=== PATIENT | male | born 1955 | race Caucasian/White ===

== ENCOUNTER 2019-12-12 07:33 | Emergency (ER) | payer MEDICARE, BC ==
--- NOTE | 2019-12-12 08:03 | EDM.PDOC ---
ED HPI GENERAL MEDICAL PROBLEM - General Chief Complaint: Cardiovascular Problem Stated Complaint: HEART PRESSURE Time Seen by Provider: 12/12/19 07:45 Source of Information: Reports: Patient, Family History Limitations: Reports: No Limitations - History of Present Illness INITIAL COMMENTS - FREE TEXT/NARRATIVE: 64-year-old male who is been having shortness of breath and chest pressure with activity for several months. He is undergoing a work-up and has had an echocardiogram, labs, a stress echo, and yesterday he was getting a CT angiogram but the CT broke. His d-dimer was negative, BNP was normal, echocardiogram showed mild hypertrophy but no significant valvular disease or pericardial effusion. The stress echo however did show an area of decreased contractility at the apex and very little activity tolerance with dyspnea leading to the CT angiogram which was aborted due to equipment failure. He is becoming more and more anxious about his symptoms. This morning he got up and felt short of breath and having pressure radiating into his arms so he was brought into the emergency room. An EKG on arrival showed no ST elevation or depression. He was hypertensive. Onset: Unknown/Unsure (Symptoms have been waxing and waning for months) Duration: Waxing/Waning Worsens with: Reports: Other (Worse with activity, he also gets abdominal bloating and pressure after eating) Associated Symptoms: Reports: Chest Pain (Mostly pressure), Shortness of Breath (Especially with activity). Denies: Confusion, Cough, Fever/Chills, Nausea/ Vomiting Mid-Sternal Chest Pain Score (Numeric/FACES): 3 - Related Data Allergies Allergy/AdvReac Type Severity Reaction Status Date / Time penicillin V Allergy Other Verified 12/12/19 08:03 Home Meds: Home Meds amLODIPine Besylate [Norvasc] 5 mg PO DAILY 06/08/15 [History] Finasteride 5 mg PO DAILY 01/06/16 [History] Melatonin 5 mg PO BEDTIME 01/06/16 [History] diphenhydrAMINE [Benadryl] 50 mg PO BEDTIME 10/25/16 [History] [place]-3 Fatty Acids [Darien-3] 500 mg PO DAILY 09/24/18 [History] Calcium Carb/D3/Mag AA Chelate [Coral Calcium Capsule] 1 cap PO BID 03/20/19 [ History] Aspirin [Halfprin] 81 mg PO DAILY 03/27/19 [History] carvediloL [Coreg] 3.125 mg PO BID 12/09/19 [History] Past Medical History HEENT History: Reports: Impaired Vision Cardiovascular History: Reports: Hypertension, [place] Respiratory History: Reports: Sleep Apnea Other Respiratory History: cpap Gastrointestinal History: Reports: None Genitourinary History: Reports: Renal Calculus Musculoskeletal History: Reports: Osteoarthritis, Other (See Below) Other Musculoskeletal History: bilateral knee pain Neurological History: Reports: Migraines Psychiatric History: Reports: None Endocrine/Metabolic History: Reports: None Hematologic History: Reports: None Immunologic History: Reports: None Oncologic (Cancer) History: Reports: Prostate, Other (See Below) Other Oncologic History: skin Dermatologic History: Reports: None - Infectious Disease History Infectious Disease History: Reports: Chicken Pox, Mumps - Past Surgical History Cardiovascular Surgical History: Reports: None Respiratory Surgical History: Reports: None GI Surgical History: Reports: Appendectomy, Colonoscopy Male Surgical History: Reports: Prostate Biopsy, Ureteral Stent Neurological Surgical History: Reports: None Musculoskeletal Surgical History: Reports: Arthroscopic Knee Oncologic Surgical History: Reports: None Dermatological Surgical History: Reports: None Social & Family History - Tobacco Use Smoking Status *Q: Never Smoker - Caffeine Use Caffeine Use: Reports: Coffee, Tea - Alcohol Use Days Per Week of Alcohol Use: 7 Number of Drinks Per Day: 1 Total Drinks Per Week: 7 - Recreational Drug Use Recreational Drug Use: No - Living Situation & Occupation Living situation: Reports: Occupation: Employed ED ROS GENERAL - Review of Systems Review Of Systems: See Below Constitutional: Reports: Malaise. Denies: Fever, Chills Respiratory: Reports: Shortness of Breath Cardiovascular: Reports: Chest Pain, Blood Pressure Problem, Dyspnea on Exertion. Denies: Palpitations GI/Abdominal: Reports: Distension (Bloated or distention feeling after eating) : Reports: No Symptoms Neurological: Denies: Headache Psychiatric: Reports: Anxiety ED EXAM, GENERAL - Physical Exam Exam: See Below Exam Limited By: No Limitations General Appearance: Alert, Anxious Eye Exam: Bilateral Eye: EOMI Head: Atraumatic Respiratory/Chest: No Respiratory Distress, Lungs Clear Cardiovascular: Regular Rate, Rhythm, No Murmur. No: Bradycardia, Tachycardia GI/Abdominal: Soft, Other (Some discomfort with palpation across the upper abdomen but no focal guarding or rebound) Extremities: Normal Inspection. No: Pedal Edema Neurological: Alert, Oriented Psychiatric: Anxious Skin Exam: Warm, Dry, Erythema (Facial erythema) Course - Vital Signs Last Recorded V/S: Last Vital Signs Temp 97 F 12/12/19 07:41 Pulse 76 12/12/19 08:22 Resp 13 12/12/19 08:22 BP 149/99 H 12/12/19 08:22 Pulse Ox 94 L 12/12/19 08:22 - Orders/Labs/Meds Orders: Active Orders 24 hr Category Date Time Status EKG Documentation Completion [RC] ASDIRECTED Care 12/12/19 07:56 Active EKG 12 Lead [EK] Routine Ther 12/12/19 07:56 Ordered Labs: Laboratory Tests 12/12/19 Range/Units 08:04 Troponin I < 0.017 (0.000-0.056) ng/mL - Re-Assessments/Exams Free Text/Narrative Re-Assessment/Exam: 12/12/19 08:02 Recent records were reviewed. A 2 view chest x-ray was ordered as he has not had one, initial EKG was ordered and reviewed. A troponin will be drawn. 12/12/19 08:46 EKG was nonspecific, chest x-ray showed what appeared to be a mild diffuse pneumonitis pattern. A CT chest without contrast was ordered. 12/12/19 09:[address] appeared normal, troponin was 0. Patient's blood pressure normalized while in the emergency room without treatment. I think reassurance is all I can offer today and he can finish his CT angiogram or cardiology consultation as soon as possible. Departure - Departure Time of Disposition: 10:09 Disposition: Home, Self-Care 01 Clinical Impression: Shortness of breath on exertion, Atypical chest pain Instructions: Shortness of Breath, Adult, [id number] Referrals: Taty Graff MD [Primary Care Provider] - Forms: ED Department Discharge Care Plan Goals: Continue current medications, activity as tolerated, and follow-up with cardiology as planned. Return anytime if worsening or concerns. Sepsis Event Note - Evaluation Sepsis Screening Result: No Definite Risk - Focused Exam Vital Signs: Vital Signs Temp Pulse Resp BP Pulse Ox 12/12/19 08:22 76 13 149/99 H 94 L 12/12/19 07:41 97 F 96 14 176/126 H 96 Date Exam was Performed: 12/12/19 Time Exam was Performed: 10:29 - My Orders Last 24 Hours: My Active Orders 12/12/19 07:56 EKG Documentation Completion [RC] ASDIRECTED EKG 12 Lead [EK] Routine - Assessment/Plan Last 24 Hours: My Active Orders 12/12/19 07:56 EKG Documentation Completion [RC] ASDIRECTED EKG 12 Lead [EK] Routine
[2019-12-12 08:36] VITALS: BP 149/99; PULSE 76
--- NOTE | 2019-12-12 09:01 | CR ---
CHEST: 2 view CLINICAL HISTORY:Dyspnea COMPARISON:None FINDINGS: Heart size and pulmonary vascularity is normal. There is generalized interstitial prominence. There is some patchy density in the left lower lobe. The this likely represents some atelectasis. Pneumonic infiltrate is not excluded. Prescribe aorta IMPRESSION: GENERALIZED INTERSTITIAL PROMINENCE MAY BE ACUTE OR CHRONIC MINIMAL PATCHY DENSITY IN THE LEFT INFRAHILAR REGION MAY REPRESENT ATELECTASIS BUT IT IS NOT EXCLUDED.
--- NOTE | 2019-12-12 10:07 | CT ---
Chest wo Cont CLINICAL HISTORY: Dyspnea TECHNIQUE: Transverse scans were obtained from the thoracic inlet to the lung bases without contrast. Auto dosage reduction and iterative reconstruction techniques employed. COMPARISONS: None FINDINGS: There is some pleural parenchymal scarring in both lung bases. This is similar to the CT abdomen from January of 2016. No alveolar infiltrates are identified. Interstitial markings are essentially normal. There is no bronchial thickening or bronchiectasis. There are no pleural effusions. No suspicious mediastinal adenopathy or mass is identified. There are degenerative changes in the spine. IMPRESSION: Mild bibasilar scarring No mass, infiltrate or suspicious adenopathy
== END 2019-12-12 10:10 | disposition home or self-care (01) ==
LOC: JP.ED 07:33
DX: R06.02 Shortness of breath (principal); E07.89 Other specified disorders of thyroid; I10 Essential (primary) hypertension; I25.2 Old myocardial infarction; M19.90 Unspecified osteoarthritis, unspecified site; Z79.82 Long term (current) use of aspirin; Z79.899 Other long term (current) drug therapy
CPT/HCPCS: 36415; 71046; 71046-26; 71250; 71250-26; 84484; 93005; 93010; 99283; 99285-25

== ENCOUNTER 2020-07-13 06:29 | Emergency (ER) | payer MEDICARE, BC ==
[2020-07-13] MEDS ORDERED: Carvedilol 6.25 MG Tab PO ONE (07:30)
--- NOTE | 2020-07-13 07:31 | EDM.PDOC ---
ED HPI GENERAL MEDICAL PROBLEM - General Chief Complaint: Cardiovascular Problem Stated Complaint: BLOOD PRESSURE VERY HIGH/HEADACHE Time Seen by Provider: 07/13/20 07:12 Source of Information: Reports: Patient, RN Notes Reviewed History Limitations: Reports: No Limitations - History of Present Illness INITIAL COMMENTS - FREE TEXT/NARRATIVE: 65-year-old gentleman presents emergency department a complaint of elevated blood pressure and headache, he recently underwent open heart surgery for repair of atrial septal defect at which time he had been on Coreg for several years. Unfortunately he went into atrial flutter within the next couple weeks has been started on medications of amiodarone and Eliquis. He states he is tolerated this medication well they have been reducing the dose however the Coreg was never been restarted. He has been monitoring his blood pressure at home and noticed a slow increase in his blood pressure over the last several weeks, initially after his procedure his blood pressure was quite low but now it has continued to increase. He states over the last couple days he has had headache but no other symptoms. - Related Data Allergies Allergy/AdvReac Type Severity Reaction Status Date / Time penicillin V Allergy Other Verified 07/13/20 06:41 Home Meds: Home Meds Finasteride 5 mg PO DAILY 01/06/16 [History] Melatonin 5 mg PO BEDTIME 01/06/16 [History] diphenhydrAMINE [Benadryl] 50 mg PO BEDTIME 10/25/16 [History] [place]-3 Fatty Acids [Harrison-3] 500 mg PO DAILY 09/24/18 [History] Calcium Carb/D3/Mag AA Chelate [Coral Calcium Capsule] 1 cap PO BID 03/20/19 [History] Aspirin [Halfprin] 81 mg PO DAILY 03/27/19 [History] Furosemide 20 mg PO DAILY PRN 03/11/20 [History] Amiodarone HCl [Pacerone] 100 mg PO DAILY 07/13/20 [History] Past Medical History HEENT History: Reports: Impaired Vision Cardiovascular History: Reports: CAD, Hypertension, [place] Respiratory History: Reports: Sleep Apnea Other Respiratory History: cpap Genitourinary History: Reports: Renal Calculus Musculoskeletal History: Reports: Osteoarthritis, Other (See Below) Other Musculoskeletal History: bilateral knee pain Neurological History: Reports: Migraines Oncologic (Cancer) History: Reports: Malignant Melanoma, Prostate, Other (See Below) Other Oncologic History: skin Dermatologic History: Reports: Melanoma - Infectious Disease History Infectious Disease History: Reports: Chicken Pox, Measles, Mumps - Past Surgical History Head Surgeries/Procedures: Reports: None Cardiovascular Surgical History: Reports: None, Other (See Below) 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 Respiratory Surgical History: Reports: None GI Surgical History: Reports: Appendectomy, Colonoscopy Male Surgical History: Reports: Prostate Biopsy, Ureteral Stent Neurological Surgical History: Reports: None Musculoskeletal Surgical History: Reports: Arthroscopic Knee Oncologic Surgical History: Reports: None Dermatological Surgical History: Reports: Skin Biopsy Social & Family History - Family History Family Medical History: Noncontributory - Tobacco Use Smoking Status *Q: Never Smoker - Caffeine Use Caffeine Use: Reports: Coffee Caffeine Use Comment: one cup per day - Recreational Drug Use Recreational Drug Use: No - Living Situation & Occupation Living situation: Reports: Occupation: Employed ED ROS GENERAL - Review of Systems Review Of Systems: See Below Constitutional: Reports: No Symptoms HEENT: Reports: No Symptoms Respiratory: Reports: No Symptoms Cardiovascular: Reports: Blood Pressure Problem GI/Abdominal: Reports: No Symptoms Neurological: Reports: Headache ED EXAM, GENERAL - Physical Exam Exam: See Below Exam Limited By: No Limitations General Appearance: Alert, WD/WN, No Apparent Distress Respiratory/Chest: No Respiratory Distress, Lungs Clear, Normal Breath Sounds, No Accessory Muscle Use, Chest Non-Tender Cardiovascular: Regular Rate, Rhythm, No Murmur GI/Abdominal: Soft, Non-Tender Course - Vital Signs Last Recorded V/S: Last Vital Signs Temp 96.1 F L 07/13/20 06:48 Pulse 82 07/13/20 10:30 Resp 16 07/13/20 06:48 BP 138/108 H 07/13/20 10:30 Pulse Ox 94 L 07/13/20 08:25 - Orders/Labs/Meds Orders: Active Orders 24 hr Category Date Time Status Cardiac Monitoring [RC] .As Directed Care 07/13/20 07:23 Active Labs: Laboratory Tests 07/13/20 07/13/20 Range/Units 07:36 07:36 WBC 6.8 (4.5-11.0) K/uL RBC 5.47 (4.30-5.90) M/uL Hgb 15.5 H (12.0-15.0) g/dL Hct 48.3 (40.0-54.0) % MCV 88 (80-98) fL MCH 28 (27-31) pg MCHC 32 (32-36) % Plt Count 214 (150-400) K/uL Neut % (Auto) 62 (36-66) % Lymph % (Auto) 21 L (24-44) % [place] % (Auto) 11 H (2-6) % Eos % (Auto) 5 H (2-4) % Baso % (Auto) 0 (0-1) % Sodium 142 (140-148) mmol/L Potassium 3.9 (3.6-5.2) mmol/L Chloride 105 (100-108) mmol/L Carbon Dioxide 26 (21-32) mmol/L Anion Gap 11.5 (5.0-14.0) mmol/L BUN 13 (7-18) mg/dL Creatinine 1.1 (0.8-1.3) mg/dL Est Cr Clr Drug Dosing 63.05 mL/min Estimated GFR (MDRD) > 60 (>60) Glucose 101 (74-106) mg/dL Calcium 8.8 (8.5-10.1) mg/dL Total Bilirubin 0.9 D (0.2-1.0) mg/dL AST 27 (15-37) U/L ALT 38 (12-78) U/L Alkaline Phosphatase 84 (46-116) U/L Troponin I < 0.017 (0.000-0.056) ng/mL Total Protein 6.7 (6.4-8.2) g/dL Albumin 3.5 (3.4-5.0) g/dL Globulin 3.2 (2.3-3.5) g/dL Albumin/Globulin Ratio 1.1 L (1.2-2.2) Meds: Medications Discontinued Medications Generic Name Dose Route Start Last Admin Trade Name Freq PRN Reason Stop Dose Admin Carvedilol 6.25 mg 07/13/20 07:30 07/13/20 07:37 Coreg PO 07/13/20 07:31 6.25 mg ONETIME ONE Administration Ketorolac Tromethamine 30 mg 07/13/20 09:46 07/13/20 09:51 Toradol IM 07/13/20 09:47 30 mg ONETIME ONE Administration - Re-Assessments/Exams Free Text/Narrative Re-Assessment/Exam: 07/13/20 08:28 More history has become available he states that the headache was sudden onset 3 days ago and is progressively gotten worse he did have nausea and vomiting this morning Departure - Departure Time of Disposition: 10:35 Disposition: Home, Self-Care 01 Condition: Fair Clinical Impression: Hypertensive urgency Referrals: Taty Graff MD [Primary Care Provider] - Forms: ED Department Discharge Additional Instructions: Restart your Coreg 1 tablet twice a day 6.25 mg dose, continue with your other medications, please follow-up with your primary care in the next 3 to 5 days for reevaluation, call or return to the emergency department with worsening of symptoms, keep your follow-up appointment with cardiology Sepsis Event Note (ED) - Evaluation Sepsis Screening Result: No Definite Risk - Focused Exam Vital Signs: Vital Signs Temp Pulse Pulse Resp BP BP Pulse Ox 07/13/20 10:30 82 138/108 H 07/13/20 10:04 76 169/117 H 07/13/20 08:25 78 168/110 H 94 L 07/13/20 07:37 84 186/121 H 07/13/20 06:48 96.1 F L 83 16 186/121 H 96 - My Orders Last 24 Hours: My Active Orders 07/13/20 07:23 Cardiac Monitoring [RC] .As Directed - Assessment/Plan Last 24 Hours: My Active Orders 07/13/20 07:23 Cardiac Monitoring [RC] .As Directed Plan: Assessment Acuity = acute Site and laterality = hypertensive urgency Etiology = probably related to blood pressure medication Manifestations = headache now improved Location of injury = Home Lab values = CBC, CMP, troponin within normal limits CT scan of the head shows no acute process however does show old lacunar infarcts basal ganglia area Plan Plan is to increase his Coreg 6.25 mg twice a day this was his original dose and then follow-up with primary care in the next 3 to 5 days for reevaluation he does have a follow-up with cardiology in the future as well This note was dictated using [employer] voice recognition software please call with any questions on syntax or grammar.
--- NOTE | 2020-07-13 09:21 | CT ---
Head wo Cont CLINICAL HISTORY: New headache COMPARISON: None TECHNIQUE: Transverse scans were obtained from the base of the skull through the vertex without IV contrast on a multislice, multidetector CT scanner. Scribed os FINDINGS: There is a small focus of encephalomalacia in the left basal ganglia consistent with the lacunar type infarct in the head of the caudate. There is no mass effect, hemorrhage, or extraaxial collection. The basal cisterns and sulci over the convexities are mildly prominent. The ventricles are normal for age. The right carotid siphon is ectatic. No aneurysm is identified. 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 No acute intracranial process identified Mild age-related atrophy
[2020-07-13] MEDS ORDERED: Ketorolac 30 MG/ML SDV IM ONE (09:46)
[2020-07-13 10:31] VITALS: BP 138/108; PULSE 82
== END 2020-07-13 11:20 | disposition home or self-care (01) ==
LOC: JP.ED 06:29
DX: I16.0 Hypertensive urgency (principal); I25.10 Atherosclerotic heart disease of native coronary artery without angina pectoris; I10 Essential (primary) hypertension; I25.2 Old myocardial infarction; M19.90 Unspecified osteoarthritis, unspecified site; Z79.82 Long term (current) use of aspirin; Z88.0 Allergy status to penicillin; Z79.899 Other long term (current) drug therapy
CPT/HCPCS: 36415; 70450; 80053; 84484; 85025; 96372; 99284; A9270; J1885; 99283

== ENCOUNTER 2021-12-05 06:32 | Day surgery (SDC) | payer MEDICARE, BC ==
[2021-12-05] MEDS ORDERED: Propofol 200 MG/20 ML SDV ONE (07:23)
[2021-12-05] MEDS ORDERED: Midazolam 1 MG/ML 2 ML SDV ONE (07:23)
[2021-12-05] MEDS ORDERED: fentaNYL 100 MCG/2 ML SDV ONE (07:23)
[2021-12-05] MEDS: Sodium Chloride 0.9% 1,000 ML IV SCH (07:25)
[2021-12-05 09:14] VITALS: BP 153/77; PULSE 70
== END 2021-12-05 09:20 | disposition home or self-care (01) ==
LOC: JP.SDS 06:32
PROVIDERS: ATTEND Surgery
DX: Z12.11 Encounter for screening for malignant neoplasm of colon (principal); K62.1 Rectal polyp; G47.33 Obstructive sleep apnea (adult) (pediatric); I10 Essential (primary) hypertension; Z88.0 Allergy status to penicillin
CPT/HCPCS: 88305; J2250; J2704; J3010; J7030

== ENCOUNTER 2022-06-05 06:58 | Inpatient (IN) | payer MEDICARE, BC ==
[2022-06-05] MEDS ORDERED: Propofol 200 MG/20 ML SDV ONE ×2 (07:09→09:39)
[2022-06-05] MEDS ORDERED: Midazolam 1 MG/ML 2 ML SDV ONE (07:09)
[2022-06-05] MEDS ORDERED: fentaNYL 100 MCG/2 ML SDV ONE ×3 (07:09→09:52)
[2022-06-05] MEDS ORDERED: Lactated Ringers 1,000 ML IV SCH (07:30)
[2022-06-05] MEDS ORDERED: Nozin Nasal Sanitizer NASBOTH ONE (07:30)
[2022-06-05 07:48] LABS: ESTIMATED GFR 73 mL/min (>60)
[2022-06-05] MEDS ORDERED: ceFAZolin 2 GM in Premix Bag 1 BAG IV ONE (08:30)
[2022-06-05] MEDS ORDERED: Lactated Ringers 1,000 ML ONE (09:26)
[2022-06-05] MEDS: Bupivacaine 0.5% 30 ML SDV ONE ×3 (10:18→10:39)
[2022-06-05] MEDS ORDERED: Ondansetron 4 MG/2 ML SDV IVPUSH PRN (10:51)
[2022-06-05] MEDS ORDERED: Ondansetron 4 MG Tab.DIS PO PRN (10:51)
[2022-06-05] MEDS ORDERED: Sodium Chloride 0.9% 1,000 ML IV SCH (11:00)
[2022-06-05] MEDS: traMADol 50 MG Tab PO PRN ×3 (11:53→21:30)
[2022-06-05] MEDS ORDERED: Acetaminophen 325 MG Tab PO SCH (12:00)
[2022-06-05] MEDS: HYDROmorphone 0.5 MG/0.5 ML Syringe IVPUSH PRN ×2 (12:09→14:24)
[2022-06-05] MEDS: oxyCODONE 5 MG Tab PO PRN ×2 (12:59→18:33)
[2022-06-05] MEDS: Acetaminophen 500 MG Tab PO SCH ×2 (12:59→18:33)
[2022-06-05] MEDS: ceFAZolin 1 GM in Premix Bag 1 BAG IV SCH (16:42)
[2022-06-05] MEDS: Furosemide 20 MG **PTOM PO SCH (16:43)
[2022-06-05] MEDS ORDERED: [UNRECOGNIZED DRUG - OTHER] IARTIC ONE (16:44)
[2022-06-05] MEDS ORDERED: [UNRECOGNIZED DRUG - OTHER] INJECT ONE (16:44)
[2022-06-05] MEDS: Nozin Nasal Sanitizer NASBOTH SCH (20:21)
[2022-06-05] MEDS: diphenhydrAMINE 25 MG Cap PO SCH (20:23)
[2022-06-05] MEDS: Melatonin 3 MG Tab PO SCH (20:24)
[2022-06-05] MEDS: Ketorolac 30 MG/ML SDV IVPUSH SCH (20:26)
[2022-06-06] MEDS: Acetaminophen 500 MG Tab PO SCH ×5 (00:14→23:05)
[2022-06-06] MEDS: oxyCODONE 5 MG Tab PO PRN ×5 (00:14→23:04)
[2022-06-06] MEDS: ceFAZolin 1 GM in Premix Bag 1 BAG IV SCH ×2 (00:14→07:58)
[2022-06-06] MEDS: Ketorolac 30 MG/ML SDV IVPUSH SCH (02:31)
[2022-06-06] MEDS: traMADol 50 MG Tab PO PRN ×3 (05:34→20:24)
[2022-06-06] MEDS ORDERED: hydrOXYzine HCl 25 MG Tab PO PRN (07:56)
[2022-06-06] MEDS: Nozin Nasal Sanitizer NASBOTH SCH ×2 (08:37→20:20)
[2022-06-06] MEDS: Docusate Sodium 100 MG Cap PO SCH (08:38)
[2022-06-06] MEDS: SPIRONOLACTONE 25 MG PO SCH (08:38)
[2022-06-06] MEDS: Hydrochlorothiazide 25 MG **PTOM PO SCH (08:39)
[2022-06-06] MEDS: Furosemide 20 MG **PTOM PO SCH (08:39)
[2022-06-06] MEDS: AMLODIPINE 5 MG PO SCH (08:40)
[2022-06-06] MEDS: Enoxaparin 30 MG/0.3 ML Syringe SUBCUT SCH (08:41)
[2022-06-06] MEDS ORDERED: Finasteride 5 MG **PTOM PO SCH ×2 (09:00→21:00)
[2022-06-06] MEDS ORDERED: amLODIPine 5 MG **PTOM PO SCH (09:00)
[2022-06-06] MEDS ORDERED: Spironolactone 25 MG Tab PO SCH (09:00)
[2022-06-06] MEDS ORDERED: Furosemide 20 MG **PTOM PO SCH (09:00)
[2022-06-06] MEDS: diphenhydrAMINE 25 MG Cap PO SCH (20:20)
[2022-06-06] MEDS: Celecoxib 200 MG Cap PO SCH (20:21)
[2022-06-06] MEDS: Melatonin 3 MG Tab PO SCH (20:22)
[2022-06-06] MEDS ORDERED: AMLODIPINE 5 MG PO SCH (21:00)
[2022-06-07 02:50] VITALS: PULSE 85
[2022-06-07] MEDS: traMADol 50 MG Tab PO PRN ×2 (05:05→11:04)
[2022-06-07] MEDS: Acetaminophen 500 MG Tab PO SCH (05:05)
[2022-06-07] MEDS: oxyCODONE 5 MG Tab PO PRN (07:16)
[2022-06-07 07:21] VITALS: BP 132/90
[2022-06-07] MEDS: Nozin Nasal Sanitizer NASBOTH SCH (08:04)
[2022-06-07] MEDS: SPIRONOLACTONE 25 MG PO SCH (08:06)
[2022-06-07] MEDS: Celecoxib 200 MG Cap PO SCH (08:07)
[2022-06-07] MEDS: Docusate Sodium 100 MG Cap PO SCH (08:08)
[2022-06-07] MEDS: Furosemide 20 MG **PTOM PO SCH (08:09)
[2022-06-07] MEDS: Hydrochlorothiazide 25 MG **PTOM PO SCH (08:09)
[2022-06-07] MEDS: Enoxaparin 30 MG/0.3 ML Syringe SUBCUT SCH (08:10)
[2022-06-07] MEDS: AMLODIPINE 5 MG PO SCH (08:12)
== END 2022-06-07 11:45 | disposition home or self-care (01) | DRG 470 ==
LOC: JP.SDS 06:58 → JP.2SS 10:51 → JP.SDS 06-06 16:08 → JP.2SS 06-06 16:09
PROVIDERS: ADMIT Specialist; ATTEND Specialist
PROC: 0SRC0J9 Replacement of Right Knee Joint with Synthetic Substitute, Cemented, Open Approach (ICD-10-PCS; principal; 2022-06-05)
PROC: 0SJC4ZZ Inspection of Right Knee Joint, Percutaneous Endoscopic Approach (ICD-10-PCS; 2022-06-05)
DX: M17.11 Unilateral primary osteoarthritis, right knee (principal); I25.10 Atherosclerotic heart disease of native coronary artery without angina pectoris; I10 Essential (primary) hypertension; G47.33 Obstructive sleep apnea (adult) (pediatric); I25.2 Old myocardial infarction; Z85.46 Personal history of malignant neoplasm of prostate; Z85.820 Personal history of malignant melanoma of skin
CPT/HCPCS: 36415; 73560-26-RT; 73560-RT; 80053; 85025; 86850; 86900; 86901; 93005; 97110-GP; 97116-GP; 97161-GP; A9270-GY; C1713; C1776; J0690; J1170; J1650; J1885; J2250; J2704; J3010; J3490; J7030; J7120

== ENCOUNTER 2024-03-17 06:57 | Day surgery (SDC) | payer MEDICARE ==
[2024-03-17] MEDS ORDERED: fentaNYL 100 MCG/2 ML SDV ONE (07:23)
[2024-03-17] MEDS ORDERED: Propofol 200 MG/20 ML SDV ONE ×3 (07:24→10:38)
[2024-03-17] MEDS ORDERED: Midazolam 1 MG/ML 2 ML SDV ONE (07:24)
[2024-03-17] MEDS: Lactated Ringers 1,000 ML IV SCH (07:34)
[2024-03-17 07:43] LABS: BASOPHILS ABSOLUTE AUTO 0.05 K/uL (0.00-0.10); BASOPHILS PERCENT AUTO 0.7 % (0.1-1.3); EOSINOPHILS ABSOLUTE AUTO 0.21 K/uL (0.00-0.40); EOSINOPHILS PERCENT AUTO 2.8 % (0.0-5.4); HEMATOCRIT 48.5 % (38.4-49.7); HEMOGLOBIN 16.7 g/dL (12.9-16.9); IMMATURE GRAN PERCENT AUTO 0.1 % (0.0-0.7); LYMPHOCYTES ABSOLUTE AUTO 2.36 K/uL (0.8-3.3); LYMPHOCYTES PERCENT AUTO 31.5 % (11.4-47.7); MEAN CORPUSCULAR HEMOGLOBIN 29.7 pg (31.6-35.5); MEAN CORPUSCULAR HGB CONC 34.4 g/dL (31.6-35.5); MEAN CORPUSCULAR VOLUME 86.1 fL (81.4-99.0); MONOCYTES PERCENT AUTO 10.7 % (3.3-12.6); NEUTROPHILS ABSOLUTE AUTO 4.07 K/uL (1.0-7.6); NEUTROPHILS PERCENT AUTO 54.2 % (40.0-78.1); PLATELET COUNT,PLT 249 K/uL (130-375); RED BLOOD CELL COUNT 5.63 M/uL (4.14-5.76); WHITE BLOOD CELL COUNT,WBC 7.5 K/uL (3.2-11.0)
[2024-03-17 07:49] LABS: IMMATURE GRAN ABSOLUTE AUTO 0.01 K/uL (0.00-0.23)
[2024-03-17 08:04] LABS: ALANINE AMINOTRANSFERASE,ALT 34 U/L (12-78); ALBUMIN 3.8 g/dL (3.4-5.0); ALKALINE PHOSPHATASE 63 U/L (46-116); ASPARTATE AMNIOTRANSFERASE,AST 24 U/L (15-37); BILIRUBIN TOTAL 1.4 mg/dL (0.2-1.0); BLOOD UREA NITROGEN,BUN 21 mg/dL (7-18); CALCIUM 9.4 mg/dL (8.5-10.1); CARBON DIOXIDE,CO2 27 mmol/L (21-32); CHLORIDE,CL 102 mmol/L (100-108); CREATININE 1.1 mg/dL (0.8-1.3); EST CRCL DRUG DOSING (CG) 59.59 mL/min; ESTIMATED GFR 72 mL/min (>60); GLUCOSE RANDOM 106 mg/dL (74-106); POTASSIUM,K 3.2 mmol/L (3.6-5.2); PROTEIN TOTAL,TP 7.5 g/dL (6.4-8.2); SODIUM,NA 138 mmol/L (140-148)
[2024-03-17 08:08] LABS: ANION GAP 12.2 mmol/L (5.0-14.0)
[2024-03-17] MEDS ORDERED: oxyCODONE 5 MG Tab PO PRN (09:06)
[2024-03-17] MEDS ORDERED: Magnesium Hydroxide 400 MG/5 ML Susp 30 ML Cup PO PRN (09:07)
[2024-03-17] MEDS ORDERED: Ondansetron 4 MG/2 ML SDV IVPUSH PRN (09:07)
[2024-03-17] MEDS ORDERED: Docusate Sodium 100 MG Cap PO PRN (09:07)
[2024-03-17] MEDS ORDERED: ceFAZolin 2 GM in Sodium Chloride 0.9% 100 ML IV SCH (09:15)
[2024-03-17] MEDS: Bupivacaine 0.5% 50 ML MDV ONE (10:18)
[2024-03-17] MEDS: Ketorolac 30 MG/ML SDV IVPUSH PRN (12:06)
[2024-03-17] MEDS: oxyCODONE 5 MG Tab PO PRN (12:08)
[2024-03-17] MEDS: Morphine 2 MG/ML SYRINGE IVPUSH PRN (12:57)
[2024-03-17] MEDS: HYDROmorphone 1 MG/ML Syringe IVPUSH ONE ×2 (13:28→14:40)
[2024-03-17] MEDS: Nozin Nasal Sanitizer NASBOTH SCH (13:33)
[2024-03-17] MEDS: Sodium Chloride 0.9% 1,000 ML IV SCH (14:02)
[2024-03-17] MEDS: Heparin Sodium 5,000 Units/ML Vial SUBCUT ONE (15:16)
[2024-03-17] MEDS: Acetaminophen 325 MG Tab PO SCH (15:19)
[2024-03-17 15:39] VITALS: BP 144/93; PULSE 92
[2024-03-17] MEDS ORDERED: ceFAZolin 2 GM in Premix Bag 1 BAG IV SCH (17:00)
[2024-03-17] MEDS ORDERED: Nozin Nasal Sanitizer NASBOTH SCH (21:00)
[2024-03-17] MEDS ORDERED: diphenhydrAMINE 25 MG Cap PO SCH (21:00)
[2024-03-17] MEDS ORDERED: Calcium Carbonate/Vitamin D3 1500 MG-400 Units Tab PO SCH (21:00)
[2024-03-17] MEDS ORDERED: Non-Formulary Medication 1 Each (Diphenhydramine [Benadryl] 50 MG Cap) PO SCH (21:00)
[2024-03-17] MEDS ORDERED: amLODIPine 5 MG Tab PO SCH ×2 (21:00)
[2024-03-17] MEDS ORDERED: Melatonin 3 MG Tab PO SCH (21:00)
[2024-03-17] MEDS ORDERED: Finasteride 5 MG Tab PO SCH (21:00)
[2024-03-18] MEDS ORDERED: Vitamin B Complex Tab PO SCH (09:00)
[2024-03-18] MEDS ORDERED: Spironolactone 25 MG Tab PO SCH (09:00)
[2024-03-18] MEDS ORDERED: VITAMIN B COMPLEX PO SCH (09:00)
[2024-03-18] MEDS ORDERED: Hydrochlorothiazide 12.5 MG Cap PO SCH (09:00)
[2024-03-18] MEDS ORDERED: Non-Formulary Medication 1 Each (Melatonin [Melatonin] 10 MG Cap) PO SCH (09:00)
[2024-03-18] MEDS ORDERED: FATTY ACIDS PO SCH (09:00)
[2024-03-18] MEDS ORDERED: Aspirin 325 MG Tab.EC PO SCH (09:00)
[2024-03-18] MEDS ORDERED: Furosemide 20 MG Tab PO SCH (09:00)
[2024-03-18] MEDS ORDERED: OMEGA PO SCH (09:00)
[2024-03-18] MEDS ORDERED: Fish Oil/Omega-3 Fatty Acids 1 Gm Cap PO SCH (09:00)
[2024-03-18] MEDS ORDERED: Ascorbic Acid 500 MG Tab PO SCH (09:00)
[2024-03-18] MEDS ORDERED: Hydrochlorothiazide 25 MG Tab PO SCH (09:00)
[2024-03-18] MEDS ORDERED: Non-Formulary Medication 1 Each (Ascorbic Acid [Vitamin C] 1,000 MG Tablet) PO SCH (09:00)
[2024-03-18] MEDS ORDERED: Non-Formulary Medication 1 Each (Cholecalciferol (Vitamin D3) [Vitamin D3] 125 MCG Capsule PO SCH (09:00)
== END 2024-03-17 16:00 | disposition other institution (70) ==
LOC: JP.SDS 06:57 → JP.MS 09:07 → JP.SDS 16:00
PROVIDERS: ATTEND Specialist
DX: M17.12 Unilateral primary osteoarthritis, left knee (principal); I10 Essential (primary) hypertension; Z88.0 Allergy status to penicillin
CPT/HCPCS: 01402-QZ; 36415; 73560-26-LT; 73560-LT; 80053; 85025; 93926-26; 93926-LT; A9270-GY; C1713; C1776; J0665; J0690; J1170; J1644; J1885; J2250; J2270; J2704; J3010; J7030; J7120

== ENCOUNTER 2025-06-15 16:09 | Emergency (ER) | payer MEDICARE ==
[2025-06-15 16:49] LABS: BASOPHILS ABSOLUTE AUTO 0.06 K/uL (0.00-0.10); BASOPHILS PERCENT AUTO 0.4 % (0.1-1.3); EOSINOPHILS ABSOLUTE AUTO 0.27 K/uL (0.00-0.40); EOSINOPHILS PERCENT AUTO 2.0 % (0.0-5.4); IMMATURE GRAN ABSOLUTE AUTO 0.03 K/uL (0.00-0.23); IMMATURE GRAN PERCENT AUTO 0.2 % (0.0-0.7); LYMPHOCYTES ABSOLUTE AUTO 3.18 K/uL (0.8-3.3); LYMPHOCYTES PERCENT AUTO 23.4 % (11.4-47.7); MONOCYTES ABSOLUTE AUTO 1.54 K/uL (0.20-0.90); MONOCYTES PERCENT AUTO 11.3 % (3.3-12.6); NEUTROPHILS ABSOLUTE AUTO 8.51 K/uL (1.0-7.6); NEUTROPHILS PERCENT AUTO 62.7 % (40.0-78.1); PLATELET COUNT,PLT 233 K/uL (130-375); RED BLOOD CELL COUNT 5.54 M/uL (4.14-5.76); WHITE BLOOD CELL COUNT,WBC 13.6 K/uL (3.2-11.0)
[2025-06-15] MEDS: Diltiazem 25 MG/5 ML SDV IVPUSH ONE (17:11)
[2025-06-15 17:16] LABS: A/G RATIO 1.0 (1.2-2.2); ALANINE AMINOTRANSFERASE,ALT 32 U/L (12-78); ASPARTATE AMNIOTRANSFERASE,AST 21 U/L (15-37); BILIRUBIN TOTAL 0.9 mg/dL (0.2-1.0); BLOOD UREA NITROGEN,BUN 26 mg/dL (7-18); CARBON DIOXIDE,CO2 27 mmol/L (21-32); CHLORIDE,CL 101 mmol/L (100-108); CREATININE 1.3 mg/dL (0.8-1.3); EST CRCL DRUG DOSING (CG) 49.69 mL/min; ESTIMATED GFR 58 mL/min (>60); GLUCOSE RANDOM 97 mg/dL (74-106); POTASSIUM,K 3.3 mmol/L (3.6-5.2); PROTEIN TOTAL,TP 7.9 g/dL (6.4-8.2); SODIUM,NA 139 mmol/L (140-148); TROPONIN I HIGH SENSITIVITY 9.2 pg/mL (<=60.3)
[2025-06-15] MEDS: Sodium Chloride 0.9% 10 ML Syringe FLUSH PRN (17:59)
[2025-06-15] MEDS: Iopamidol 755 Mg/ML 100 ML Bottle IV SCH (17:59)
[2025-06-15] MEDS: Diltiazem 120 MG Cap.CD PO ONE (18:42)
[2025-06-15 18:43] VITALS: BP 129/81; PULSE 101
[2025-06-15] MEDS: Potassium Chloride 20 MEQ Tab.ER PO ONE (18:43)
[2025-06-18 05:06] LABS: ANAPLASMA PHAGOCYTOPHILUM PCR Not Detected; BABESIA MICROTI BY PCR Not Detected; EHRLICHIA CHAFFEENSIS BY PCR Not Detected; EHRLICHIA EWINGII/CANIS BY PCR Not Detected; EHRLICHIA MURIS-LIKE BY PCR Not Detected
== END 2025-06-15 19:45 | disposition home or self-care (01) ==
LOC: JP.ED 16:09
DX: I48.92 Unspecified atrial flutter (principal); E87.6 Hypokalemia; I25.10 Atherosclerotic heart disease of native coronary artery without angina pectoris; I10 Essential (primary) hypertension; I25.2 Old myocardial infarction; Z86.16 Personal history of COVID-19; Z88.0 Allergy status to penicillin; Z88.6 Allergy status to analgesic agent; Z79.82 Long term (current) use of aspirin
CPT/HCPCS: 36415; 71275; 80053; 83735; 84484; 85025; 85379; 86140; 86618; 87468; 87469; 87484; 87798; 93005; 93010; 96361; 96374; 99285; A9270; J3490; J7030; Q9967